=== PATIENT | male | born 1945 | race Caucasian/White ===

== ENCOUNTER 2019-03-25 18:59 | Inpatient (IN) | payer OTHER, MEDICARE ==
--- NOTE | 2019-03-25 19:20 | ER Document Report ---
ED Medical Screen (RME) - General Chief Complaint: Abdominal Pain Stated Complaint: ABDOMINAL PAIN Time Seen by Provider: 03/25/19 19:16 Mode of Arrival: Wheelchair Information source: Patient Notes: 73-year-old male presented to ED for complaint of lower left quadrant abdominal pain for the last for 5 days. He states he was laid in the bed for about 2 weeks for nausea vomiting diarrhea and fever before this pain started. He states he has had more multiple colonoscopies and is never been told he had diverticulitis he states he has had a few strokes and is diabetic type II. He does smoke about 5 or 6 cigarettes a day. States he has not drank alcohol in the last year denies use of illicit drugs. He states he does live alone. He states the last time he had a fever was about 5 days ago he woke up was hungry and then he started with the abdominal pain the next day. States his last bowel movement was yesterday and was soft. He states he is urinating with no problems. I have greeted and performed a rapid initial assessment of this patient. A comprehensive ED assessment and evaluation of the patient, analysis of test results and completion of medical decision making process will be conducted by an additional ED providers. Urinating okay TRAVEL OUTSIDE OF THE [place] IN LAST 30 DAYS: No - Related Data Allergies/Adverse Reactions: Penicillins Allergy (Unknown, Verified 01/03/15 07:28) Past Medical History - Past Medical History Cardiac Medical History: Reports: Hx Hypertension Pulmonary Medical History: Reports: Hx COPD Denies: Hx Tuberculosis Endocrine Medical History: Reports: Hx Diabetes Mellitus Type 2 Psychiatric Medical History: Denies: Hx Depression Past Surgical History: Reports: Hx Tonsillectomy - Immunizations Hx Diphtheria, Pertussis, Tetanus Vaccination: Yes
[2019-03-25 20:16] LABS: ABSOLUTE BASOPHILS # (AUTO) 0.1 10^3/uL (0.0-0.2); ABSOLUTE EOSINOPHILS # (AUTO) 0.1 10^3/uL (0.0-0.6); ABSOLUTE LYMPHOCYTES (AUTO) 1.1 10^3/uL (0.5-4.7); ABSOLUTE NEUT (AUTO) 7.1 10^3/uL (1.7-8.2); BASOPHILS % (AUTO) 0.8 % (0-2); EOSINOPHILS % (AUTO) 1.6 % (0-6); HEMATOCRIT 43.8 % (37.9-51.0); HEMOGLOBIN 15.5 g/dL (13.5-17.0); LYMPHOCYTES % (AUTO) 11.7 % (13-45); MEAN CORPUSCULAR HEMOGLOBIN 31.6 pg (27.0-33.4); MEAN CORPUSCULAR HGB CONC 35.5 g/dL (32.0-36.0); MEAN CORPUSCULAR VOLUME 89 fl (80-97); MONOCYTES % (AUTO) 10.9 % (3-13); PLATELET COUNT 266 10^3/uL (150-450); RED BLOOD COUNT 4.91 10^6/uL (4.35-5.55); RED CELL DISTRIBUTION WIDTH 13.6 % (11.5-14.0); TOTAL CELLS COUNTED % (AUTO) 100 %; WHITE BLOOD COUNT 9.4 10^3/uL (4.0-10.5)
--- NOTE | 2019-03-25 20:28 | RADIOLOGY REPORT (SQ) ---
EXAM DESCRIPTION: XR ABDOMEN SUPINE AND ERECT WITH CHEST (ABD ACUTE SERIES) COMPLETED DATE/TME: 03/25/2019 00:00 CLINICAL HISTORY: 73 years, Male, ABDOMINAL PAIN COMPARISON: None. NUMBER OF VIEWS: TECHNIQUE: LIMITATIONS: None. FINDINGS: There are multiple loops of normal caliber, but gas containing small bowel in the abdomen and pelvis, possibly small bowel ileus. No free air. No evidence of pulmonary infiltrate or pleural effusion. The heart and mediastinum are unremarkable Pulmonary vascularity appears normal. There are atherosclerotic changes and tortuosity of the thoracic aorta. There is an old fracture of the lateral right clavicle. IMPRESSION: Possible small bowel ileus. copyright 2010 [facility] [employer]- All Rights Reserved
[2019-03-25 20:39] LABS: ALBUMIN 3.6 g/dL (3.5-5.0); ALKALINE PHOSPHATASE 77 U/L (38-126); ANION GAP 9 (5-19); ASPARTATE AMINO TRANSFERASE 21 U/L (17-59); BILIRUBIN,TOTAL 0.7 mg/dL (0.2-1.3); BLOOD UREA NITROGEN 15 mg/dL (7-20); CALCIUM 8.8 mg/dL (8.4-10.2); CARBON DIOXIDE 26 mmol/L (22-30); CHLORIDE 100 mmol/L (98-107); GLUCOSE 187 mg/dL (75-110); POTASSIUM 3.5 mmol/L (3.6-5.0); TOTAL PROTEIN 6.1 g/dL (6.3-8.2)
[2019-03-25] MEDS ORDERED: NORMAL SALINE 1000 ML 1,000 ML IV ONE (21:04)
--- NOTE | 2019-03-25 21:10 | ER Document Report ---
ED General - General Chief Complaint: Abdominal Pain Stated Complaint: ABDOMINAL PAIN Time Seen by Provider: 03/25/19 19:16 Primary Care Provider: [facility] [Primary Care Provider] - Follow up as needed Mode of Arrival: Wheelchair TRAVEL OUTSIDE OF THE [place] IN LAST 30 DAYS: No - HPI Notes: Mr. Byrne is a 73-year-old male followed by the [place] with multiple chronic medical problems now presenting with a 3 to 4-day history of worsening left lower quadrant abdominal pain aggravated by movement. Several loose stools today. No recent antibiotic therapy. States that he had a colonoscopy about 5 years ago was told he had benign polyps. No abdominal surgery. No known history of diverticulosis. No urinary symptoms. Nausea without vomiting. Pain is currently 3/10 intensity. Patient is currently being treated for hypertension, hyperlipidemia, COPD, d iabetes mellitus type 2, old CVA and osteoarthritis. Medications include clonidine, metformin, warfarin. History of anaphylactic reaction to penicillin. Smokes 1/4 pack cigarettes per day. Denies alcohol consumption. No history of drug abuse. - Related Data Allergies/Adverse Reactions: Penicillins Allergy (Unknown, Verified 01/03/15 07:28) Past Medical History - General Information source: Patient, Relative - Social History Smoking Status: Current Every Day Smoker Frequency of alcohol use: None Drug Abuse: None Lives with: Family Family History: CAD, CVA, Malignancy Patient has suicidal ideation: No Patient has homicidal ideation: No - Past Medical History Cardiac Medical History: Reports: Hx Hypertension Pulmonary Medical History: Reports: Hx COPD Denies: Hx Tuberculosis Neurological Medical History: Reports: Hx Cerebrovascular Accident Endocrine Medical History: Reports: Hx Diabetes Mellitus Type 2 GI Medical History: Reports: Hx Colonoscopy Musculoskeletal Medical History: Reports Hx Arthritis Psychiatric Medical History: Denies: Hx Depression Past Surgical History: Reports: Hx Oral Surgery - widsom teeth, Hx Tonsillectomy - Immunizations Hx Diphtheria, Pertussis, Tetanus Vaccination: Yes Hx Pneumococcal Vaccination: 12/09/11 Review of Systems - Review of Systems Notes: Constitutional: Negative for fever. HENT: Negative for sore throat. Eyes: Negative for visual changes. Cardiovascular: Negative for chest pain. Respiratory: Negative for shortness of breath. Gastrointestinal: As per HPI. Genitourinary: Negative for dysuria. Musculoskeletal: Negative for back pain. Skin: Negative for rash. Neurological: Negative for headaches, weakness or numbness. 10 point ROS negative except as marked above and in HPI. Physical Exam - Vital signs Vitals: Temp Pulse Resp BP Pulse Ox 98.4 F 99 20 119/68 95 03/25/19 19:16 03/25/19 19:16 03/25/19 19:16 03/25/19 19:16 03/25/19 19:16 - Notes Notes: GENERAL: Well-developed well-nourished appearing in no acute distress. SKIN: Good turgor no rashes. HEAD: Normocephalic atraumatic. EYES: PERRLA. EOMI. Conjunctivae and sclerae clear. EARS: CANALS AND TMS CLEAR. NOSE: CLEAR. MOUTH: Moist mucosa. Poor dentition. No stridor or edema. No drooling. NECK: Supple. No masses or thyromegaly. No adenopathy. Carotids 2+ without bruits. No JVD. BACK: Symmetrical without tenderness. CHEST: Respirations unlabored. Breath sounds clear and symmetrical. HEART: Regular rhythm. No murmur gallop or rub. ABDOMEN: Mild obesity. Moderate tenderness on deep palpation left lower quadrant. Soft without masses, organomegaly or rebound. Bowel sounds normally active. No bruits. GENITALIA: Deferred. EXTREMITIES: Mild degenerative changes intrerphalangeal joints of both hands. No edema. No calf tenderness. Cap refill less than 1.5 seconds. Dorsalis pedis and posterior tibial pulses 3+ and symmetrical. NEUROLOGICAL: GCS 15. Alert and oriented x3. Normal gait. Fluent speech. Cranial nerves II through XII intact. Sensorimotor and cerebellar normal. Normal tone. PSYCHIATRIC: Appropriate affect. Course - Re-evaluation Re-evalutation: 03/25/19 21:11 I would strongly suspect diverticulosis with diverticulitis. CT is requested. Labs pending include CBC, urinalysis, comprehensive metabolic profile. 03/25/19 23:33 CT scan demonstrates a moderate size left lateral rectus sheath hematoma. INR is approximately 5.5. We will reverse the warfarin with IV vitamin K. Case has been discussed with on-call surgicalist LEVI Cordero. He does not feel there is any surgical intervention at this time and recommends medical admission. Case been discussed with on-call hospitalist Dr. Bowen who will admit him to telemetry. - Vital Signs Vital signs: Temp Pulse Resp BP Pulse Ox 98.4 F 76 16 159/69 H 98 03/25/19 23:15 03/25/19 23:15 03/25/19 23:15 03/25/19 23:15 03/25/19 23:15 - Laboratory Result Diagrams: 03/25/19 20:00 03/25/19 20:00 Laboratory results interpreted by me: 03/25/19 03/25/19 03/25/19 20:00 20:00 20:45 Lymph % (Auto) 11.7 L PT 54.2 H* INR 5.85 H* Sodium 134.7 L Potassium 3.5 L Glucose 187 H Total Protein 6.1 L Discharge - Discharge Clinical Impression: Rectus sheath hematoma Qualifiers: Encounter type: initial encounter Qualified Code(s): S30.1XXA - Contusion of abdominal wall, initial encounter Warfarin toxicity Qualifiers: Encounter type: initial encounter Injury intent: accidental or unintentional Qualified Code(s): T45.511A - Poisoning by anticoagulants, accidental (unintentional), initial encounter Condition: Good Disposition: ADMITTED INPATIENT Admitting Provider: Andrés (Hospitalist) Unit Admitted: Telemetry Referrals: [facility] [Primary Care Provider] - Follow up as needed
[2019-03-25 21:22] LABS: INTERNATIONAL RATION (INR) 5.85; PROTHROMBIN TIME 54.2 SEC (11.4-15.4)
[2019-03-25] MEDS ORDERED: ONDANSETRON HCL INJ/PF 4 MG/2 ML SDV IV ONE (21:39)
[2019-03-25] MEDS: FENTANYL CITRATE INJ/PF 100 MCG/2 ML AMPUL IV PRN ×2 (21:49→23:08)
--- NOTE | 2019-03-25 22:31 | RADIOLOGY REPORT (SQ) ---
EXAM DESCRIPTION: CT ABDOMEN PELVIS WITH IV CONTRAST COMPLETED DATE/TME: 03/25/2019 21:03 CLINICAL HISTORY: 73 years, Male, Left lower quadrant abdominal pain COMPARISON: None. TECHNIQUE: Images stored on PACS. All CT scanners at this facility use dose modulation, iterative reconstruction, and/or weight based dosing when appropriate to reduce radiation dose to as low as reasonably achievable (ALARA). [facility]: Dose Right [facility]: CareDose [facility]: Dose Right [facility]: Teradose 4D [facility]: [employer] LIMITATIONS: None. FINDINGS: Lung base is grossly clear. The heart is of normal size. No effusion. The liver is homogeneous. Gallbladder is nondistended. The pancreas spleen and adrenals are unremarkable.. Nonobstructing nephrolithiasis of the right kidney, the largest measuring 5 mm. No obstructive uropathy hydronephrosis or hydroureter. The bowel is nonobstructed. Diverticulosis without acute diverticulitis. The appendix is normal. Rectus sheath hematoma is identified left lateral. This is moderate-sized. Age-appropriate osteoarthritis IMPRESSION: Rectus sheath hematoma, left lateral TECHNICAL DOCUMENTATION: Quality ID # [id number]: Final reports with documentation of one or more dose reduction techniques (e.g., Automated exposure control, adjustment of the mA and/or kV according to patient size, use of iterative reconstruction technique) copyright 2011 [employer] [facility] [employer]- All Rights Reserved
[2019-03-25] MEDS ORDERED: PHYTONADIONE INJ 10 MG/1 ML AMPULE IV ONE (23:03)
[2019-03-25] MEDS ORDERED: IPRATROPIUM/ALBUTEROL 0.5-2.5 MG/3 ML AMPUL NEB PRN (23:31)
[2019-03-25] MEDS ORDERED: ACETAMINOPHEN 325 MG TABLET PO PRN (23:31)
[2019-03-25] MEDS ORDERED: MAG HYDROX/AL HYDROX/SIMETH SUSP 30 ML UDCUP PO PRN (23:31)
[2019-03-25 23:54] LABS: APPEARANCE,URINE CLEAR; BILIRUBIN,URINE NEGATIVE (NEGATIVE); COLOR,URINE YELLOW; GLUCOSE, URINE 50 mg/dL (NEGATIVE); KETONES,URINE NEGATIVE (NEGATIVE); PROTEIN,URINE NEGATIVE (NEGATIVE); UROBILINOGEN,URINE NEGATIVE mg/dL (<2.0)
[2019-03-25 23:58] LABS: URINE SPECIFIC GRAVITY > 1.060
[2019-03-26] MEDS: KETOROLAC TROMETHAMINE INJ/PF 30 MG/1 ML SDV IV PRN ×2 (01:44→20:04)
[2019-03-26] MEDS ORDERED: INFLUENZA QUAD (6MOS+) 2019-20 VAC 0.5 ML SYR IM ONE (02:19)
[2019-03-26] MEDS ORDERED: GLUCAGON,HUMAN RECOMB 1 MG INJ IM PRN (03:00)
[2019-03-26] MEDS ORDERED: DEXTROSE 50%-WATER SYRINGE 25 GM/50 ML DOSE IV PRN (03:00)
[2019-03-26] MEDS ORDERED: DEXTROSE 50%-WATER SYRINGE 12.5 GM/25 ML DOSE IV PRN (03:00)
[2019-03-26] MEDS ORDERED: DEXTROSE 40% GEL 15 GM TUBE PO PRN (03:00)
[2019-03-26] MEDS ORDERED: DEXTROSE 40% GEL 15 GM TUBE X 2 PO PRN (03:00)
--- NOTE | 2019-03-26 04:27 | PDOC H&P ---
History of Present Illness Admission Date/PCP: 03/25/19 23:47 [facility] Patient complains of: Rectal pain History of Present Illness: RICHELLE MCKEON JR is a 73 year old male with a past medical history of hypertension dyslipidemia COPD diabetes, osteoarthritis and CVA without residual on Coumadin. Patient presents with 48 hours of rectal pain occurring after a paroxysm of cough. In the emergency department he is found to have a supratherapeutic INR of 5.8 and a moderate rectal sheath hematoma. He received symptomatic management, vitamin K and referred to the hospitalist for admission. Patient admits recent influenza prompting several doses of Tamiflu but otherwise no changes in medications his last check of INR was over a month ago. He otherwise feels well and denies blood per rectum, fever or chills Past Medical History Cardiac Medical History: Reports: Hypertension Pulmonary Medical History: Reports: Chronic Obstructive Pulmonary Disease (COPD) Denies: Tuberculosis Endocrine Medical History: Reports: Diabetes Mellitus Type 2 Musculoskeltal Medical History: Reports: Arthritis Psychiatric Medical History: Denies: Depression Past Surgical History Past Surgical History: Reports: Tonsillectomy Social History Information Source: Patient Lives with: Family Smoking Status: Current Every Day Smoker Cigarettes Packs Per Day: 0.5 Electronic Cigarette use?: No Number of Years Smokin Frequency of Alcohol Use: None Hx Recreational Drug Use: No Drugs: None Hx Prescription Drug Abuse: No - Advance Directive Resuscitation Status: Full Code Family History Family History: CAD, CVA, Malignancy Parental Family History Reviewed: Yes Children Family History Reviewed: Yes Sibling(s) Family History Reviewed.: Yes Medication/Allergy Home Medications: Metformin HCl [Glucophage 1000 mg Tablet] 1,000 mg PO DAILY 10/23/12 Atorvastatin Calcium 40 mg PO DAILY 01/03/15 Cyanocobalamin (Vitamin B-12) [Vitamin B12] 1,000 mcg PO DAILY 01/03/15 Glipizide [Glucotrol 10 mg Tablet] 10 mg PO DAILY 01/03/15 Pioglitazone HCl [Actos] 15 mg PO DAILY 01/03/15 Topiramate 100 mg PO PRN PRN 01/03/15 Aspirin [Ecotrin 81 mg EC Tablet] 81 mg PO DAILY #0 tabec 01/07/15 Glipizide/Metformin HCl [Glipizide-Metformin 5-500 mg] 1 each PO BID #60 01/07/15 Warfarin Sodium [Coumadin 5 mg Tablet] 5 mg PO QHS #30 tablet 01/07/15 Allergies/Adverse Reactions: Penicillins Allergy (Unknown, Verified 01/03/15 07:28) Review of Systems Constitutional: ABSENT: chills, fever(s), headache(s), weight gain, weight loss Eyes: ABSENT: visual disturbances Ears: ABSENT: hearing changes Cardiovascular: ABSENT: chest pain, dyspnea on exertion, edema, orthropnea, palpitations Respiratory: ABSENT: cough, hemoptysis Gastrointestinal: ABSENT: abdominal pain, constipation, diarrhea, hematemesis, hematochezia, nausea, vomiting Genitourinary: ABSENT: dysuria, hematuria Musculoskeletal: ABSENT: joint swelling Integumentary: ABSENT: rash, wounds Neurological: ABSENT: abnormal gait, abnormal speech, confusion, dizziness, focal weakness, syncope Psychiatric: ABSENT: anxiety, depression, homidical ideation, suicidal ideation Endocrine: ABSENT: cold intolerance, heat intolerance, polydipsia, polyuria Hematologic/Lymphatic: ABSENT: easy bleeding, easy bruising Physical Exam Vital Signs: Temp Pulse Resp BP Pulse Ox 97.5 F 67 20 103/56 L 97 03/26/19 03:17 03/26/19 03:17 03/26/19 03:17 03/26/19 03:17 03/26/19 03:17 Intake & Output 03/24/19 03/25/19 03/26/19 11:59 11:59 11:59 Intake Total 1000 Balance 1000 Weight 92.1 kg General appearance: PRESENT: no acute distress, well-developed, well-nourished Head exam: PRESENT: atraumatic, normocephalic Eye exam: PRESENT: conjunctiva pink, EOMI, PERRLA. ABSENT: scleral icterus Ear exam: PRESENT: normal external ear exam Mouth exam: PRESENT: moist, tongue midline Neck exam: ABSENT: carotid bruit, JVD, lymphadenopathy, thyromegaly Respiratory exam: PRESENT: clear to auscultation enrique. ABSENT: rales, rhonchi, wheezes Cardiovascular exam: PRESENT: RRR. ABSENT: diastolic murmur, rubs, systolic murmur Pulses: PRESENT: normal dorsalis pedis pul Vascular exam: PRESENT: normal capillary refill GI/Abdominal exam: PRESENT: normal bowel sounds, soft, tenderness - Deep suprapubic pain. ABSENT: distended, guarding, mass, organolmegaly, rebound Rectal exam: PRESENT: deferred Extremities exam: PRESENT: full ROM. ABSENT: calf tenderness, clubbing, pedal edema Neurological exam: PRESENT: alert, awake, oriented to person, oriented to place, oriented to time, oriented to situation, CN II-XII grossly intact. ABSENT: motor sensory deficit Psychiatric exam: PRESENT: appropriate affect, normal mood. ABSENT: homicidal ideation, suicidal ideation Skin exam: PRESENT: dry, intact, warm. ABSENT: cyanosis, rash Results Laboratory Results: 03/25/19 20:00 03/25/19 20:00 03/25/19 03/25/19 03/25/19 20:00 20:00 20:00 WBC 9.4 RBC 4.91 Hgb 15.5 Hct 43.8 MCV 89 MCH 31.6 MCHC 35.5 RDW 13.6 Plt Count 266 Seg Neutrophils % 75.0 Sodium 134.7 L Potassium 3.5 L Chloride 100 Carbon Dioxide 26 Anion Gap 9 BUN 15 Creatinine 0.94 Est GFR ( Amer) > 60 Glucose 187 H Calcium 8.8 Magnesium 2.0 Total Bilirubin 0.7 AST 21 Alkaline Phosphatase 77 Total Protein 6.1 L Albumin 3.6 Lipase 67.6 Urine Color Urine Appearance Urine pH Ur Specific [place] Urine Protein Urine Glucose (UA) Urine Ketones Urine Blood Urine RBC (Auto) 03/25/19 23:34 WBC RBC Hgb Hct MCV MCH MCHC RDW Plt Count Seg Neutrophils % Sodium Potassium Chloride Carbon Dioxide Anion Gap BUN Creatinine Est GFR ( Amer) Glucose Calcium Magnesium Total Bilirubin AST Alkaline Phosphatase Total Protein Albumin Lipase Urine Color YELLOW Urine Appearance CLEAR Urine pH 5.0 Ur Specific [place] > 1.060 Urine Protein NEGATIVE Urine Glucose (UA) 50 H Urine Ketones NEGATIVE Urine Blood SMALL H Urine RBC (Auto) 4 Impressions: Acute Abdomen Series 03/25/19 00:00 IMPRESSION: Possible small bowel ileus. copyright 2011 [employer]- All Rights Reserved Abdomen/Pelvis CT 03/25/19 21:03 IMPRESSION: Rectus sheath hematoma, left lateral TECHNICAL DOCUMENTATION: Quality ID # 436: Final reports with documentation of one or more dose reduction techniques (e.g., Automated exposure control, adjustment of the mA and/or kV according to patient size, use of iterative reconstruction technique) copyright 2011 [employer]- All Rights Reserved Assessment and Plan - Diagnosis (1) Rectus sheath hematoma Qualifiers: Encounter type: initial encounter Qualified Code(s): S30.1XXA - Contusion of abdominal wall, initial encounter Is this a current diagnosis for this admission?: Yes Plan: Secondary to supratherapeutic INR, conservative management, Coumadin held, symptomatic management clear liquid diet and stool softener. (2) Warfarin toxicity Qualifiers: Encounter type: initial encounter Injury intent: accidental or unintentional Qualified Code(s): T45.511A - Poisoning by anticoagulants, accidental (unintentional), initial encounter Is this a current diagnosis for this admission?: Yes Plan: Complicated by hematoma, warfarin discontinued, vitamin K trial, level INR (3) Diabetes mellitus Is this a current diagnosis for this admission?: Yes Plan: Humalog sliding scale, follow-up A1c - Time Time Spent with patient: 25-34 minutes - Inpatient Certification Medical Necessity: Need Close Monitoring Due to Risk of Patient Decompensation
--- NOTE | 2019-03-26 05:39 | Progress Note ---
Provider Note Provider Note: I was contacted by the emergency room physician about an opinion regarding a rectus sheath hematoma. I have reviewed the patient's CT scan. Surgery has no place in the treatment of a spontaneous rectus sheath hematoma. Treatment strategies are entirely medical. There is no surgery that will be helpful for this patient. This was discussed at length with the emergency department physician. I will cancel the consult for surgery.
[2019-03-26] MEDS: FENTANYL CITRATE INJ/PF 100 MCG/2 ML AMPUL IV PRN ×2 (06:11→11:30)
--- NOTE | 2019-03-26 06:11 | EKG REPORT ---
SEVERITY:- BORDERLINE ECG - SINUS RHYTHM BORDERLINE T WAVE ABNORMALITIES : Confirmed by: Greg Bryan MD 26-Mar-2019 06:11:05
[2019-03-26 06:32] LABS: INTERNATIONAL RATION (INR) 1.71
[2019-03-26 06:37] LABS: ABSOLUTE BASOPHILS # (AUTO) 0.1 10^3/uL (0.0-0.2); ABSOLUTE EOSINOPHILS # (AUTO) 0.2 10^3/uL (0.0-0.6); ABSOLUTE LYMPHOCYTES (AUTO) 1.3 10^3/uL (0.5-4.7); ABSOLUTE MONOCYTES (AUTO) 0.8 10^3/uL (0.1-1.4); ABSOLUTE NEUT (AUTO) 3.8 10^3/uL (1.7-8.2); BASOPHILS % (AUTO) 0.8 % (0-2); EOSINOPHILS % (AUTO) 3.2 % (0-6); HEMATOCRIT 38.5 % (37.9-51.0); HEMOGLOBIN 13.5 g/dL (13.5-17.0); LYMPHOCYTES % (AUTO) 21.2 % (13-45); MEAN CORPUSCULAR HEMOGLOBIN 31.1 pg (27.0-33.4); MEAN CORPUSCULAR VOLUME 89 fl (80-97); MONOCYTES % (AUTO) 13.6 % (3-13); PLATELET COUNT 239 10^3/uL (150-450); RED BLOOD COUNT 4.32 10^6/uL (4.35-5.55); SEGMENTED NEUTROPHILS % (AUTO) 61.2 % (42-78); TOTAL CELLS COUNTED % (AUTO) 100 %; WHITE BLOOD COUNT 6.2 10^3/uL (4.0-10.5)
[2019-03-26 06:40] LABS: PROTHROMBIN TIME 20.3 SEC (11.4-15.4)
[2019-03-26] MEDS: INSULIN LISPRO 100 UNIT/ML 3 ML VIAL SUBCUT SCH ×4 (10:23→22:02)
[2019-03-26] MEDS: DOCUSATE SODIUM 100 MG CAPSULE PO SCH ×2 (10:24→19:01)
--- NOTE | 2019-03-26 17:12 | PDOC PROGRESS REPORT ---
Subjective Progress Note for:: 03/26/19 Subjective:: Patient states that still having some abdominal pain. Denies any l ightheadedness fever or chills. Patient does not know why he is on warfarin. States that he had a brain bleed before and that he was later placed on warfarin. When asked patient if he has had ischemic stroke, history of atrial fibrillation, blood clots, DVT PE, mechanical heart valves, patient's answers no but states that he has had a stroke before with a brain bleed. He is not able to give me any indication for proper reason for anticoagulation at this time states that it is prescribed to him at the [facility]. Reason For Visit: SUPRATHER INR RECTAL HEMATOMA Physical Exam Vital Signs: Temp Pulse Resp BP Pulse Ox 97.7 F 73 16 110/56 L 96 03/26/19 11:17 03/26/19 14:00 03/26/19 11:17 03/26/19 11:17 03/26/19 11:17 Intake & Output 03/25/19 03/26/19 03/27/19 06:59 06:59 06:59 Intake Total 1240 1616 Output Total 0 250 Balance 1240 1366 Weight 92.1 kg 92.1 kg General appearance: PRESENT: no acute distress, cooperative Neck exam: ABSENT: JVD Respiratory exam: PRESENT: clear to auscultation enrique, symmetrical, unlabored. ABSENT: tachypnea, wheezes Cardiovascular exam: PRESENT: RRR, +S1, +S2. ABSENT: tachycardia GI/Abdominal exam: PRESENT: soft. ABSENT: rebound, rigid, tenderness Neurological exam: PRESENT: alert, awake, oriented to person, oriented to place, oriented to time Psychiatric exam: ABSENT: agitated, anxious Results Laboratory Results: 03/26/19 05:32 03/25/19 20:00 03/25/19 03/25/19 03/25/19 20:00 20:00 20:00 WBC 9.4 RBC 4.91 Hgb 15.5 Hct 43.8 MCV 89 MCH 31.6 MCHC 35.5 RDW 13.6 Plt Count 266 Seg Neutrophils % 75.0 Sodium 134.7 L Potassium 3.5 L Chloride 100 Carbon Dioxide 26 Anion Gap 9 BUN 15 Creatinine 0.94 Est GFR ( Amer) > 60 Glucose 187 H Calcium 8.8 Magnesium 2.0 Total Bilirubin 0.7 AST 21 Alkaline Phosphatase 77 Total Protein 6.1 L Albumin 3.6 Lipase 67.6 Urine Color Urine Appearance Urine pH Ur Specific [place] Urine Protein Urine Glucose (UA) Urine Ketones Urine Blood Urine RBC (Auto) 03/25/19 03/26/19 23:34 05:32 WBC 6.2 RBC 4.32 L Hgb 13.5 Hct 38.5 MCV 89 MCH 31.1 MCHC 35.0 RDW 13.0 Plt Count 239 Seg Neutrophils % 61.2 Sodium Potassium Chloride Carbon Dioxide Anion Gap BUN Creatinine Est GFR ( Amer) Glucose Calcium Magnesium Total Bilirubin AST Alkaline Phosphatase Total Protein Albumin Lipase Urine Color YELLOW Urine Appearance CLEAR Urine pH 5.0 Ur Specific [place] > 1.060 Urine Protein NEGATIVE Urine Glucose (UA) 50 H Urine Ketones NEGATIVE Urine Blood SMALL H Urine RBC (Auto) 4 Impressions: Acute Abdomen Series 03/25/19 00:00 IMPRESSION: Possible small bowel ileus. copyright 2010 [employer]- All Rights Reserved Abdomen/Pelvis CT 03/25/19 21:03 IMPRESSION: Rectus sheath hematoma, left lateral TECHNICAL DOCUMENTATION: Quality ID # 436: Final reports with documentation of one or more dose reduction techniques (e.g., Automated exposure control, adjustment of the mA and/or kV according to patient size, use of iterative reconstruction technique) copyright 2010 [employer]- All Rights Reserved Assessment and Plan - Diagnosis (1) Rectus sheath hematoma Qualifiers: Encounter type: initial encounter Qualified Code(s): S30.1XXA - Contusion of abdominal wall, initial encounter Is this a current diagnosis for this admission?: Yes Plan: Secondary to supratherapeutic INR and coughing fits, conservative management, Coumadin held INR is 1.7 today following vitamin K IV dose yesterday. Will place abdominal binder Check CBC in the morning (2) Warfarin toxicity Qualifiers: Encounter type: initial encounter Injury intent: accidental or unintentional Qualified Code(s): T45.511A - Poisoning by anticoagulants, accidental (unintentional), initial encounter Is this a current diagnosis for this admission?: Yes Plan: Patient's takes warfarin 5 mg on Tuesday and Tuesday and 10 mg on the other days. Patient is unable to tell me a clear indication for his warfarin use but states that he gets prescribed this at the [facility] I have instructed him that I will be holding his warfarin which will remain on hold upon discharge until he follows up with his primary care provider at the [facility]. Of note, patient denies any history of atrial fibrillation/irregular heart rhythm, mechanical heart valves, PEs or DVTs. (3) Diabetes mellitus Is this a current diagnosis for this admission?: Yes Plan: Hemoglobin A1c is 6.9. Hold metformin for 48 hours from the time of the CT. Continue sliding scale insulin and Accu-Cheks.
[2019-03-26] MEDS ORDERED: GLIPIZIDE 5 MG TABLET PO SCH (18:00)
[2019-03-26] MEDS ORDERED: ATORVASTATIN CALCIUM 40 MG TABLET PO SCH (22:00)
[2019-03-27 05:21] LABS: HEMOGLOBIN 13.3 g/dL (13.5-17.0); MEAN CORPUSCULAR HEMOGLOBIN 31.4 pg (27.0-33.4); MEAN CORPUSCULAR HGB CONC 35.1 g/dL (32.0-36.0); MEAN CORPUSCULAR VOLUME 90 fl (80-97); PLATELET COUNT 246 10^3/uL (150-450); RED BLOOD COUNT 4.25 10^6/uL (4.35-5.55); WHITE BLOOD COUNT 6.5 10^3/uL (4.0-10.5)
[2019-03-27] MEDS ORDERED: GLIPIZIDE 10 MG TABLET PO SCH (08:00)
[2019-03-27] MEDS: INSULIN LISPRO 100 UNIT/ML 3 ML VIAL SUBCUT SCH ×2 (08:02→12:05)
[2019-03-27] MEDS: DOCUSATE SODIUM 100 MG CAPSULE PO SCH (09:12)
[2019-03-27] MEDS ORDERED: LISINOPRIL 10 MG TABLET PO SCH (10:00)
--- NOTE | 2019-03-27 10:45 | PDOC DISCHARGE SUMMARY ---
Impression - Admit/DC Date/PCP Admission Date/Primary Care Provider: 03/25/19 23:47 [facility] Discharge Date: 03/27/19 - Discharge Diagnosis (1) Rectus sheath hematoma Is this a current diagnosis for this admission?: Yes (2) Warfarin toxicity Is this a current diagnosis for this admission?: Yes (3) Diabetes mellitus Is this a current diagnosis for this admission?: Yes - Additional Information Resuscitation Status: Full Code Discharge Diet: As Tolerated Discharge Activity: No Lifting Over 10 Pounds, No Lifting/Push/Pulling, Slowly Increase Activity Referrals: [facility] [[facility]] - Home Medications: Metformin HCl [Glucophage 1000 mg Tablet] 1,000 mg PO BID 10/23/12 Atorvastatin Calcium 40 mg PO QHS 01/03/15 Glipizide [Glucotrol 10 mg Tablet] 10 mg PO QAM 01/03/15 Glipizide [Glucotrol 5 mg Tablet] 5 mg PO QPM 03/26/19 Lisinopril [Prinivil 10 mg Tablet] 40 mg PO DAILY 03/26/19 Acetaminophen [Tylenol 325 mg Tablet] 650 mg PO Q4HP PRN tablet 03/27/19 Amlodipine Besylate [Norvasc 5 mg Tablet] 5 mg PO DAILY 03/27/19 Loratadine [Claritin 10 mg Tablet] 20 mg PO DAILY 03/27/19 History of Present Illiness History of Present Illness: RICHELLE MCKEON JR is a 73 year old male with a past medical history of hypertension dyslipidemia COPD diabetes, osteoarthritis and CVA without residual on Coumadin. Patient presents with 48 hours of rectal pain occurring after a paroxysm of cough. In the emergency department he is found to have a supratherapeutic INR of 5.8 and a moderate rectal sheath hematoma. He received symptomatic management, vitamin K and referred to the hospitalist for admission. Patient admits recent influenza prompting several doses of Tamiflu but otherwise no changes in medications his last check of INR was over a month ago. He otherwise feels well and denies blood per rectum, fever or chills Hospital Course Hospital Course: Patient presented with abdominal pain. Patient's vitals showed hemodynamic stability. Lab work revealed INR of 5.85. Patient is on Coumadin but is uncertain as to the specific reason why he has been prescribed this at the [facility]. Patient also notes recent upper respiratory infection and has been having some coughing fits at home. Abdominal CT scan revealed a moderate sized hematoma involving his left lateral rectus sheath. This hematoma was thought to be secondary to warfarin toxicity with supratherapeutic INR complicating mechanical overuse from his coughing fits. Patient was given IV vitamin K with improvement of INR to 1.7. Surgery was consulted and indicated no surgical intervention. Patient was placed in an abdominal binder which she will be going home with. Patient's hemoglobin has remained stable and as such patient is safe for discharge. Patient's warfarin has been held and instructed to stay off the warfarin until he follows up with his primary care provider at the [facility] which she will be doing tomorrow. I have also instructed patients to verify the exact reason why he is on warfarin from his primary provider. Patient has been cautioned against any form of heavy lifting or strenuous exercising and for slow increase his exercise activity over the next week. Physical Exam Vital Signs: Temp Pulse Resp BP Pulse Ox 97.9 F 66 17 137/62 H 98 03/27/19 08:02 03/27/19 08:02 03/27/19 08:02 03/27/19 08:02 03/27/19 08:02 Intake & Output 03/26/19 03/27/19 03/28/19 06:59 06:59 06:59 Intake Total 1240 2484 Output Total 0 600 Balance 1240 1884 Weight 92.1 kg 93.5 kg General appearance: PRESENT: no acute distress, cooperative Neck exam: ABSENT: JVD Respiratory exam: PRESENT: clear to auscultation enrique, unlabored GI/Abdominal exam: PRESENT: soft, tenderness - Minimally. Much improved from yesterday.. ABSENT: guarding, rebound, rigid Neurological exam: PRESENT: alert, awake, oriented to person, oriented to place, oriented to time Results Laboratory Results: WBC 6.5 10^3/uL (4.0-10.5) 03/27/19 04:01 RBC 4.25 10^6/uL (4.35-5.55) L 03/27/19 04:01 Hgb 13.3 g/dL (13.5-17.0) L 03/27/19 04:01 Hct 38.0 % (37.9-51.0) 03/27/19 04:01 MCV 90 fl (80-97) 03/27/19 04:01 MCH 31.4 pg (27.0-33.4) 03/27/19 04:01 MCHC 35.1 g/dL (32.0-36.0) 03/27/19 04:01 RDW 13.0 % (11.5-14.0) 03/27/19 04:01 Plt Count 246 10^3/uL (150-450) 03/27/19 04:01 Lymph % (Auto) 21.2 % (13-45) 03/26/19 05:32 [place] % (Auto) 13.6 % (3-13) H 03/26/19 05:32 Eos % (Auto) 3.2 % (0-6) 03/26/19 05:32 Baso % (Auto) 0.8 % (0-2) 03/26/19 05:32 Absolute Neuts (auto) 3.8 10^3/uL (1.7-8.2) 03/26/19 05:32 Absolute Lymphs (auto) 1.3 10^3/uL (0.5-4.7) 03/26/19 05:32 Absolute Monos (auto) 0.8 10^3/uL (0.1-1.4) 03/26/19 05:32 Absolute Eos (auto) 0.2 10^3/uL (0.0-0.6) 03/26/19 05:32 Absolute Basos (auto) 0.1 10^3/uL (0.0-0.2) 03/26/19 05:32 Seg Neutrophils % 61.2 % (42-78) 03/26/19 05:32 PT 20.3 SEC (11.4-15.4) H D 03/26/19 05:32 INR 1.71 03/26/19 05:32 INR (Anticoag Therapy) Cancelled 03/25/19 20:00 Sodium 134.7 mmol/L (137-145) L 03/25/19 20:00 Potassium 3.5 mmol/L (3.6-5.0) L 03/25/19 20:00 Chloride 100 mmol/L (98-107) 03/25/19 20:00 Carbon Dioxide 26 mmol/L (22-30) 03/25/19 20:00 Anion Gap 9 (5-19) 03/25/19 20:00 BUN 15 mg/dL (7-20) 03/25/19 20:00 Creatinine 0.94 mg/dL (0.52-1.25) 03/25/19 20:00 Est GFR ( Amer) > 60 (>60) 03/25/19 20:00 Est GFR (MDRD) Non-Af > 60 (>60) 03/25/19 20:00 Glucose 187 mg/dL (75-110) H 03/25/19 20:00 POC Glucose 156 mg/dL (70-110) H 03/26/19 22:00 Hemoglobin A1c % 6.9 % (4.7-6.0) H 03/26/19 05:32 Calcium 8.8 mg/dL (8.4-10.2) 03/25/19 20:00 Magnesium 2.0 mg/dL (1.6-2.3) 03/25/19 20:00 Total Bilirubin 0.7 mg/dL (0.2-1.3) 03/25/19 20:00 Direct Bilirubin 0.0 mg/dL (0.0-0.4) 03/25/19 20:00 Neonat Total Bilirubin Not Reportable 03/25/19 20:00 Neonat Direct Bilirubin Not Reportable 03/25/19 20:00 Neonat Indirect Bili Not Reportable 03/25/19 20:00 AST 21 U/L (17-59) 03/25/19 20:00 ALT 17 U/L (<50) 03/25/19 20:00 Alkaline Phosphatase 77 U/L (38-126) 03/25/19 20:00 Total Protein 6.1 g/dL (6.3-8.2) L 03/25/19 20:00 Albumin 3.6 g/dL (3.5-5.0) 03/25/19 20:00 Lipase 67.6 U/L (23-300) 03/25/19 20:00 Urine Color YELLOW 03/25/19 23:34 Urine Appearance CLEAR 03/25/19 23:34 Urine pH 5.0 (5.0-9.0) 03/25/19 23:34 Ur Specific [place] > 1.060 03/25/19 23:34 Urine Protein NEGATIVE mg/dL (NEGATIVE) 03/25/19 23:34 Urine Glucose (UA) 50 mg/dL (NEGATIVE) H 03/25/19 23:34 Urine Ketones NEGATIVE mg/dL (NEGATIVE) 03/25/19 23:34 Urine Blood SMALL (NEGATIVE) H 03/25/19 23:34 Urine Nitrite (Reflex) NEGATIVE (NEGATIVE) 03/25/19 23:34 Urine Bilirubin NEGATIVE (NEGATIVE) 03/25/19 23:34 Urine Urobilinogen NEGATIVE mg/dL (<2.0) 03/25/19 23:34 Leukocyte Esterase Rfl NEGATIVE (NEGATIVE) 03/25/19 23:34 Urine RBC (Auto) 4 /HPF 03/25/19 23:34 Urine WBC (Reflex) 2 /HPF 03/25/19 23:34 Squamous Epi Cells Auto 1 /HPF 03/25/19 23:34 Urine Mucus (Auto) RARE /LPF 03/25/19 23:34 Urine Ascorbic Acid NEGATIVE (NEGATIVE) 03/25/19 23:34 Impressions: Acute Abdomen Series 03/25/19 00:00 IMPRESSION: Possible small bowel ileus. copyright 2011 [employer]- All Rights Reserved Abdomen/Pelvis CT 03/25/19 21:03 IMPRESSION: Rectus sheath hematoma, left lateral TECHNICAL DOCUMENTATION: Quality ID # [id number]: Final reports with documentation of one or more dose reduction techniques (e.g., Automated exposure control, adjustment of the mA and/or kV according to patient size, use of iterative reconstruction technique) copyright 2011 [employer]- All Rights Reserved Plan Time Spent: Less than 30 Minutes Stroke Is this a Stroke Patient?: No Acute Heart Failure - Is this a Heart Failure Patient?: No
[2019-03-27 11:07] VITALS: BP 128/64
[2019-03-27] MEDS ORDERED: GLIPIZIDE 5 MG TABLET PO SCH (18:00)
== END 2019-03-27 12:37 | disposition home or self-care (01) | DRG 556 ==
LOC: ER 18:59 → EH 23:47 → 3N 03-26 01:31
PROVIDERS: ADMIT Internal Medicine; ATTEND Internal Medicine
DX: M79.81 Nontraumatic hematoma of soft tissue (principal); D68.32 Hemorrhagic disorder due to extrinsic circulating anticoagulants; I10 Essential (primary) hypertension; E78.5 Hyperlipidemia, unspecified; T45.515A Adverse effect of anticoagulants, initial encounter; J44.9 Chronic obstructive pulmonary disease, unspecified; E11.9 Type 2 diabetes mellitus without complications; M19.90 Unspecified osteoarthritis, unspecified site; F17.210 Nicotine dependence, cigarettes, uncomplicated; Z86.73 Personal history of transient ischemic attack (TIA), and cerebral infarction without residual deficits; Z79.01 Long term (current) use of anticoagulants; Z82.49 Family history of ischemic heart disease and other diseases of the circulatory system; Z82.3 Family history of stroke; Z79.84 Long term (current) use of oral hypoglycemic drugs; Z88.0 Allergy status to penicillin
CPT/HCPCS: 36415; 74022; 74177; 80053; 81001; 82962; 83036; 83690; 83735; 85025; 85027; 85610; 93005; 93010; 96361; 96374; 96375; 99285; J1885; J2405; J3010; J3430; J7030